=== PATIENT | female | born 1990 | race Hispanic/Latino ===

== ENCOUNTER 2018-03-25 17:17 | Emergency (ER) | payer OTHER ==
[2018-03-25] MEDS ORDERED: Sodium Chloride 0.9% 1,000 ML IV ONE (18:16)
[2018-03-25] MEDS ORDERED: DiphenhydrAMINE 50 mg/ml Inj IVP STA (18:17)
--- NOTE | 2018-03-25 18:24 | ED PDOC ---
HPI: Headache Time Seen by Provider: 03/25/18 18:15 Chief Complaint (Nursing): Headache Chief Complaint (Provider): Headache History Per: Patient History/Exam Limitations: no limitations Onset/Duration Of Symptoms: Days (three to four) Current Symptoms Are (Timing): Still Present Severity: Moderate Quality: Sharp, Squeezing, "Pain" Preceeding Symptoms: None Associated Symptoms: denies: Photophobia, Blurred Vision, Nausea, Vomiting, Extremity Weakness Additional History Per: Patient (Pt presents to the ED complaining of a several day old intractible headache and anxiety over the severity of the pain and its consequences; the patient takes 1mg ativan for anxiety cotnrol. Pt denies fever, NVD or any chronic medical issues) Past Medical History Reviewed: Historical Data, Nursing Documentation, Vital Signs Vital Signs: Last Vital Signs Temp 98.5 F 03/25/18 18:01 Pulse 95 H 03/25/18 18:01 Resp 19 03/25/18 18:01 BP 160/108 H 03/25/18 18:01 Pulse Ox 100 03/25/18 18:01 - Family History Family History: States: Unknown Family Hx - Home Medications Home Medications: Ambulatory Orders Medication Instructions Recorded SUMAtriptan [Imitrex] 25 mg PO PRN PRN #5 tab 03/25/18 - Allergies Allergies/Adverse Reactions: Allergies Allergy/AdvReac Type Severity Reaction Status Date / Time No Known Allergies Allergy Verified 03/25/18 18:03 Review of Systems Neurological: Positive for: Headache Psych: Positive for: Anxiety Physical Exam - Reviewed Nursing Documentation Reviewed: Yes Vital Signs Reviewed: Yes - Physical Exam Appears: Positive for: Well, Uncomfortable Head Exam: Positive for: ATRAUMATIC, NORMAL INSPECTION Skin: Positive for: Normal Color, Warm. Negative for: Diaphoresis, Pallor, Rash Eye Exam: Positive for: Normal appearance, PERRL. Negative for: Nystagmus, Periorbital swelling, Periorbital tenderness ENT: Positive for: Normal ENT Inspection Neck: Positive for: Normal, Painless ROM, Supple. Negative for: Decreased ROM Cardiovascular/Chest: Positive for: Regular Rate, Rhythm. Negative for: Bradycardia, Tachycardia Respiratory: Positive for: Normal Breath Sounds. Negative for: Accessory Muscle Use, Crackles, Rales, Rhonchi, Stridor, Wheezing, Respiratory Distress Pulses-Carotid (L): 2+ Pulses-Carotid (R): 2+ Pulses-Radial (L): 2+ Pulses-Radial (R): 2+ - Laboratory Results Result Diagrams: 03/25/18 18:50 03/25/18 18:50 - ECG O2 Sat by Pulse Oximetry: 100 - CT Scan/US CT brain w/o contrast Other Rad Studies (CT/US): Read By Radiologist, Radiology Report Reviewed (see MDM note) Medical Decision Making Medical Decision Making: I: Migraine CARDENAS P: CBC CMP CT Head Tx with ativan, benadryl and fluids discussed borderline K+ findings that would not attribute to CARDENAS Will follow up with PMD, refer to Clinic 18:31 CT brain read and reviewed by radiologist FINDINGS: BRAIN No acute intraparenchymal hemorrhage. No mass lesion. No CT evidence for acute territorial infarct. No midline shift or extra-axial collections. VENTRICLES: No hydrocephalus. ORBITS: The orbits are unremarkable. SINUSES AND MASTOIDS: The paranasal sinuses and mastoid air cells are clear. BONES: No fracture. SOFT TISSUES: Unremarkable. IMPRESSION: No acute intracranial abnormality. Disposition - Clinical Impression Clinical Impression: Headache, Migraine - Patient ED Disposition Is Patient to be Admitted: No Doctor Will See Patient In The: Office Counseled Patient/Family Regarding: Diagnosis, Need For Followup, Rx Given - Disposition [facility] [Outside] Disposition: Routine/Home Disposition Time: 19:49 Condition: STABLE Prescriptions: SUMAtriptan [Imitrex] 25 mg PO PRN PRN #5 tab PRN Reason: Headache Instructions: Migraine Headaches in Adults, Migraine Headache (DC) Forms: [employer] (Vietnamese)
[2018-03-25] MEDS ORDERED: DiphenhydrAMINE 50 mg/ml Inj ONE (18:55)
[2018-03-25 18:57] LABS: SQUAMOUS EPITHIAL 1 /hpf (0-5); URINE BACTERIA OCC (<OCC); URINE BILIRUBIN NEGATIVE (NEGATIVE); URINE BLOOD NEGATIVE (NEGATIVE); URINE CLARITY CLEAR (Clear); URINE COLOR COLORLESS (YELLOW); URINE GLUCOSE (UA) NEG (NEGATIVE); URINE LEUKOCYTE ESTERASE NEG Leu/uL (Negative); URINE PROTEIN NEGATIVE (NEGATIVE); URINE UROBILINOGEN 0.2-1.0 mg/dL (0.2-1.0)
[2018-03-25 19:03] LABS: BASO # 0.1 K/uL (0.0-0.2); BASO % 0.6 % (0.0-2.0); EOS # 0.1 K/uL (0.0-0.7); EOS % 0.6 % (0.0-4.0); HEMOGLOBIN 12.8 g/dL (12.0-16.0); LYMPH # 2.3 K/uL (1.0-4.3); LYMPH % 25.8 % (20.0-40.0); MEAN CELL VOLUME 87.7 fl (81.0-99.0); MEAN CORPUSCULAR HEMOGLOBIN 29.7 pg (27.0-31.0); MEAN CORPUSCULAR HGB CONC 33.9 g/dL (33.0-37.0); MEAN PLATELET VOLUME 8.8 fl (7.2-11.7); MONO # 0.8 K/uL (0.0-0.8); MONO % 8.6 % (0.0-10.0); NEUT # 5.8 K/uL (1.8-7.0); NEUT % 64.4 % (50.0-75.0); RBC 4.3 Mil/uL (3.80-5.20); RED CELL DISTRIBUTION WIDTH 12.9 % (11.5-14.5); WHITE BLOOD COUNT 9.1 K/uL (4.8-10.8)
[2018-03-25 19:06] LABS: ALB/GLOB RATIO 1.4 (1.0-2.1); ALBUMIN 4.8 g/dL (3.5-5.0); ALT/SGPT 34 U/L (9-52); AST/SGOT 31 U/L (14-36); BLOOD UREA NITROGEN 15 mg/dl (7-17); CALCIUM 10.1 mg/dL (8.4-10.2); GFR NON-AFRICAN AMERICAN > 60
[2018-03-25 20:00] VITALS: BP 137/79; PULSE 91; RESP 16; TEMP 98.8; O2SAT 99
--- NOTE | 2018-03-26 08:36 | CT ---
Date of service: 03/25/2018 PROCEDURE: CT HEAD WITHOUT CONTRAST. HISTORY: intractible headache COMPARISON: None available. TECHNIQUE: Axial computed tomography images were obtained through the head/brain without intravenous contrast. Radiation dose: Total exam DLP = 745.33 mGy-cm. This CT exam was performed using one or more of the following dose reduction techniques: Automated exposure control, adjustment of the mA and/or kV according to patient size, and/or use of iterative reconstruction technique. FINDINGS: HEMORRHAGE: No intracranial hemorrhage. BRAIN: Kirby-white matter differentiation is preserved. There is no mass, mass effect or abnormal extra-axial fluid collection. There is no territorial infarction. The midline sagittal structures are normal. VENTRICLES: The ventricles are normal in size, shape and configuration. CALVARIUM: There is no calvarial fracture or extracranial soft tissue swelling. PARANASAL SINUSES: Predominantly clear. MASTOID AIR CELLS: Predominantly clear. OTHER FINDINGS: None. IMPRESSION: No acute intracranial abnormality. A preliminary report was provided by [employer].
== END 2018-03-25 20:08 | disposition home or self-care (01) ==
LOC: H.ER 17:17
DX: G43.909 Migraine, unspecified, not intractable, without status migrainosus (principal); R51 Headache
CPT/HCPCS: 70450; 80053; 81003; 81025; 85025; 96374; 96375; 99284; J1200; J1885; J7030